=== PATIENT | female | born 1950 | race Caucasian/White ===

== ENCOUNTER 2019-12-31 00:04 | Emergency (ER) | payer BC, MEDICARE ==
--- NOTE | 2019-12-31 00:29 | EDM.PDOC ---
ED HPI GENERAL MEDICAL PROBLEM - General Chief Complaint: General Stated Complaint: DIZZY/HEADACHE Time Seen by Provider: 12/31/19 00:20 Source of Information: Reports: Patient History Limitations: Reports: No Limitations - History of Present Illness INITIAL COMMENTS - FREE TEXT/NARRATIVE: Sudden onset of dizziness and room spinning Onset: Today Duration: Constant Location: Reports: Head, Upper Extremity, Left, Lower Extremity, Left, Other ( dizzy) Severity: Moderate Improves with: Reports: None Worsens with: Reports: None Headache Pain Score (Numeric/FACES): 8 - Related Data Allergies Allergy/AdvReac Type Severity Reaction Status Date / Time amoxicillin trihydrate Allergy Diarrhea Verified 06/25/13 07:13 [From Augmentin] niacin Allergy Swollen Verified 06/25/13 07:13 Tongue potassium clavulanate Allergy Diarrhea Verified 06/25/13 07:13 [From Augmentin] Home Meds: Home Meds Sourav Cit/Mag/D3/Zn/Electric Blanket Wirer/Evgeny/Bor [Citracal-Vit D + Magnesium] 1 tab PO DAILY 06/23 [History] Cholecalciferol (Vitamin D3) [Vitamin D3] 100 mg PO DAILY 06/23/13 [History] Cyanocobalamin (Vitamin B-12) [Vitamin B-12] 100 mg PO DAILY 06/23/13 [History] Pedi Multivit 38/Iron Fumarate [Hm Animal Shapes Complete Chew] 18 mg PO DAILY 06/23/13 [History] Vitamin B Complex [B Complex] 1 each PO DAILY 06/23/13 [History] Calcium Carbonate [Calcium] 500 mg PO BID 12/31/19 [History] Iron 18 mg PO DAILY 12/31/19 [History] Past Medical History HEENT History: Reports: Impaired Vision Cardiovascular History: Reports: High Cholesterol, Hypertension Other Cardiovascular History: Has been on antihypertensive in the past but this was stopped within the last year Gastrointestinal History: Reports: Bowel Obstruction PROOF READER History: Reports: - Past Surgical History GI Surgical History: Reports: Bariatric Procedure, Cholecystectomy Female Surgical History: Reports: Section, Hysterectomy Social & Family History - Tobacco Use Smoking Status *Q: Never Smoker - Caffeine Use Caffeine Use: Reports: Tea - Recreational Drug Use Recreational Drug Use: No ED ROS GENERAL - Review of Systems Review Of Systems: See Below Constitutional: Reports: Weakness, Other (Difficulty with ambulation but denies falling off to one side or the other). Denies: Fever HEENT: Reports: Other (States that her vision went black 1 she first had onset of the headache and dizziness. Denies double vision). Denies: Eye Pain Respiratory: Reports: No Symptoms Cardiovascular: Reports: No Symptoms GI/Abdominal: Reports: No Symptoms Musculoskeletal: Reports: No Symptoms Skin: Reports: No Symptoms Neurological: Reports: Confusion (Cannot state the correct month), Headache ( Describe initial headache as being very severe but has eased up), Syncope ( States she thinks she may have lost consciousness when her vision went black and she had the dizziness but doesn't know for sure. She was by herself. This all occurred at 7:30 this evening.), Change in Speech (States she feels like her tongue is bigger than usual) Psychiatric: Reports: Anxiety ED EXAM, GENERAL - Physical Exam Exam: See Below Free Text/Narrative:: Comes here with sudden onset of dizziness while doing yoga at 7:30 PM this evening. She has had trouble with her gait. She's had slight slurring of speech. She did not notify family members she was having any problems until 11: 30 PM this evening. At the time of the onset of dizziness she also reports her vision going black and having an excruciating headache. Headache has eased somewhat. She denies double vision. Exam Limited By: No Limitations General Appearance: Alert, WD/WN, Anxious Eye Exam: Bilateral Eye: EOMI (No nystagmus noted), Normal Inspection Ears: Normal External Exam Ear Exam: Bilateral Ear: Auricle Normal, Canal Normal Nose: Normal Inspection Head: Atraumatic, Normocephalic Respiratory/Chest: No Respiratory Distress Cardiovascular: Normal Peripheral Pulses GI/Abdominal: Soft, Non-Tender, No Distention Back Exam: Normal Inspection Extremities: Normal Inspection, Non-Tender, Other (Weaker pass worker strength on the left as compared to the right) Neurological: Alert, Oriented, Slow to Respond, Memory Loss Remote Events ( Cannot correctly state the month), Abnormal Gait, Other (Pronator drift on the left. Weaker pass worker on the left as compared to the right. Mild neglect of the left leg as compared to the right leg. I NIH stroke scale evaluation equals 7) Skin Exam: Warm, Dry EKG INTERPRETATION EKG Date: 12/31/19 Time: 01:19 Rhythm: NSR [place]: Normal QRS: Normal ST-T: Normal Course - Vital Signs Text/Narrative:: I discussed the patient with Dr. Silva from in [place] at 0138 hrs. The patient is a 5 hours out from last known well and is not a candidate for thrombolytic. We will be arranging for her transportation to [place]. The patient did have a labetalol drip started for systolic pressure greater than 200. Dr. Thakkar has recommended that our goal for systolic blood pressure be 220, so labetalol drip has been stopped. We'll administer aspirin. Last Recorded V/S: Last Vital Signs Temp 35 C L 12/31/19 00:17 Pulse 64 12/31/19 00:17 Resp 16 12/31/19 00:17 BP 176/70 H 12/31/19 00:17 Pulse Ox 97 12/31/19 00:17 - Orders/Labs/Meds Orders: Active Orders 24 hr Category Date Time Status EKG Documentation Completion [RC] ASDIRECTED Care 12/31/19 01:09 Ordered NPO [Nothing Per Oral Diet] [DIET] Diet 12/31/19 Breakfast Ordered Head wo Cont [CT] Stat Exams 12/31/19 01:09 Ordered Head wo Cont [CT] Stat Exams 12/31/19 01:11 Ordered CBC W/O DIFF,HEMOGRAM [HEME] Stat Lab 12/31/19 01:06 Ordered COMPREHENSIVE METABOLIC PN,CMP [CHEM] Stat Lab 12/31/19 01:06 Ordered INR,PT,PROTHROMBIN TIME [COAG] Stat Lab 12/31/19 01:10 Ordered TROPONIN I [CHEM] Stat Lab 12/31/19 01:08 Ordered UA W/MICROSCOPIC [URIN] Stat Lab 12/31/19 01:06 Ordered Sodium Chloride 0.9% @ 125 MLS/HR (1000ml) Med 12/31/19 01:15 Ordered Sodium Chloride 0.9% [Normal Saline] 1,000 ml IV ASDIRECTED EKG 12 Lead [EK] Stat Ther 12/31/19 01:06 Ordered Medication Orders Sodium Chloride (Normal Saline) 1,000 mls @ 125 mls/hr IV ASDIRECTED MARIIA Labs: Laboratory Tests 12/31/19 Range/Units 00:44 Urine Color Yellow (YELLOW) Urine Appearance Slightly cloudy A (CLEAR) Urine pH 7.0 (5.0-8.0) Ur Specific [place] >= 1.030 (1.008-1.030) Urine Protein Negative (NEGATIVE) mg/dL Urine Glucose (UA) Negative (NEGATIVE) mg/dL Urine Ketones Negative (NEGATIVE) mg/dL Urine Occult Blood Negative (NEGATIVE) Urine Nitrite Negative (NEGATIVE) Urine Bilirubin Negative (NEGATIVE) Urine Urobilinogen 0.2 (0.2-1.0) EU/dL Ur Leukocyte Esterase Small H (NEGATIVE) Urine RBC 0-5 (0-5) Urine WBC 10-20 H (0-5) Ur Epithelial Cells Rare Amorphous Sediment Few Urine Bacteria Few Urine Mucus Rare Meds: Medications Generic Name Dose Route Start Last Admin Trade Name Freq PRN Reason Stop Dose Admin Sodium Chloride 1,000 mls @ 125 mls/hr 12/31/19 01:15 Normal Saline IV ASDIRECTED MARIIA Departure - Departure Time of Disposition: 02:09 Disposition: DC/Tfer to [facility] Condition: Fair Clinical Impression: CVA, Cerebrovascular accident - Discharge Information Referrals: PCP,None [Primary Care Provider] - Forms: ED Department Discharge Sepsis Event Note - Evaluation Sepsis Screening Result: No Definite Risk - Focused Exam Vital Signs: Vital Signs Temp Pulse Resp BP Pulse Ox 12/31/19 00:17 35 C L 64 16 176/70 H 97 12/31/19 00:16 35 C L 64 16 176/70 H 97 Date Exam was Performed: 12/31/19 Time Exam was Performed: 01:13 - My Orders Last 24 Hours: My Active Orders 12/31/19 01:06 CBC W/O DIFF,HEMOGRAM [HEME] Stat COMPREHENSIVE METABOLIC PN,CMP [CHEM] Stat UA W/MICROSCOPIC [URIN] Stat EKG 12 Lead [EK] Stat 12/31/19 01:08 TROPONIN I [CHEM] Stat 12/31/19 01:09 EKG Documentation Completion [RC] ASDIRECTED Head wo Cont [CT] Stat 12/31/19 01:10 INR,PT,PROTHROMBIN TIME [COAG] Stat 12/31/19 01:11 Head wo Cont [CT] Stat 12/31/19 01:15 Sodium Chloride 0.9% @ 125 MLS/HR (1000ml) Sodium Chloride 0.9% [Normal Saline] 1,000 ml IV ASDIRECTED 12/31/19 Breakfast NPO [Nothing Per Oral Diet] [DIET] - Assessment/Plan Last 24 Hours: My Active Orders 12/31/19 01:06 CBC W/O DIFF,HEMOGRAM [HEME] Stat COMPREHENSIVE METABOLIC PN,CMP [CHEM] Stat UA W/MICROSCOPIC [URIN] Stat EKG 12 Lead [EK] Stat 12/31/19 01:08 TROPONIN I [CHEM] Stat 12/31/19 01:09 EKG Documentation Completion [RC] ASDIRECTED Head wo Cont [CT] Stat 12/31/19 01:10 INR,PT,PROTHROMBIN TIME [COAG] Stat 12/31/19 01:11 Head wo Cont [CT] Stat 12/31/19 01:15 Sodium Chloride 0.9% @ 125 MLS/HR (1000ml) Sodium Chloride 0.9% [Normal Saline] 1,000 ml IV ASDIRECTED 12/31/19 Breakfast NPO [Nothing Per Oral Diet] [DIET]
[2019-12-31] MEDS ORDERED: Sodium Chloride 0.9% 1,000 ML IV SCH (01:15)
[2019-12-31] MEDS ORDERED: Labetalol 20 MG/4 ML Syringe ONE (01:37)
[2019-12-31] MEDS ORDERED: Sodium Chloride 0.9% 100 ML ONE (01:38)
[2019-12-31] MEDS ORDERED: Labetalol 100 MG in Sodium Chloride 0.9% 80 ML IV SCH (01:45)
[2019-12-31] MEDS ORDERED: Labetalol 100 MG in Sodium Chloride 0.9% 80 ML IV ONE (01:57)
[2019-12-31] MEDS ORDERED: Aspirin 325 MG Tab.EC PO ONE (02:06)
[2019-12-31 02:54] VITALS: BP 169/78; PULSE 69
--- NOTE | 2019-12-31 06:29 | CRLCT ---
Final Report: INDICATION: VERTIGO HEADACHE CT HEAD WITHOUT CONTRAST TECHNIQUE: Multiple axial CT images were performed through the head without intravenous contrast administration. COMPARISON: No previous studies are currently available for comparison. FINDINGS: No acute intracranial hemorrhage is identified. No extra-axial collections are evident and there is no mass effect or midline shift. There is mild diffuse age-related brain atrophy. Ventricular size and configuration are within normal limits for the patient`s age. Woody-white differentiation is within normal limits. There is patchy hypodensity in the periventricular white matter, a nonspecific finding which most likely reflects chronic small vessel ischemic change. Osseous structures are within normal limits and no fractures are seen. Included portions of the paranasal sinuses and mastoid air cells are normally aerated. IMPRESSION: 1. No acute intracranial abnormality identified. 2. Mild age-related brain atrophy and white matter hypodensity consistent with chronic small vessel ischemic change. Report called to Dr. Malik at 1:39am 12/31/2019. Please note that all CT scans at this facility use dose modulation,iterative reconstruction, and\or weight-based dosing when appropriate to reduce radiation dose to as low as reasonably achievable. MIKE SCHILLING MD [facility] Dictated by: Gary Schilling MD @ 12/31/2019 01:43:07 (Electronic Signature) MTDD
== END 2019-12-31 03:09 ==
LOC: JP.ED 00:04
DX: I63.9 Cerebral infarction, unspecified (principal); Z88.1 Allergy status to other antibiotic agents; Z88.8 Allergy status to other drugs, medicaments and biological substances
CPT/HCPCS: 36415; 70450; 80053; 81001; 84484; 85027; 85610; 93005; 93010; 96360; 96361; 99285; A9270; J3490; J7030; J7050